=== PATIENT | female | born 1945 | race Caucasian/White ===

== ENCOUNTER → 2017-05-12 | Outpatient (CLI) | payer OTHER ==
[~2017-05-12] MED LIST: BENAZEPRIL HCL/1 TAB PO; COL250 PO; LISINOPRIL-HYDR1 TA2 PO; MAALOX PO; NORCO1 TA2 PO; OXYBUTYNIN CHLOR5 MG PO; PRAVACHOL20 MG PO; PROTONIX TR40 M1 PO; ZANTAC 150150 MG PO
== END | disposition home or self-care (01) ==
LOC: MA 08:36
PROC: BH02ZZZ Plain Radiography of Bilateral Breasts (ICD-10-PCS; principal; 2017-05-12)
DX: Z12.31 Encounter for screening mammogram for malignant neoplasm of breast (principal)
CPT/HCPCS: G0202

== ENCOUNTER → 2018-05-26 | Outpatient (CLI) | payer OTHER | END | disposition home or self-care (01) | LOC: MA 09:00 | PROC: BH02ZZZ Plain Radiography of Bilateral Breasts (ICD-10-PCS; principal; 2018-05-26) | DX: Z12.31 Encounter for screening mammogram for malignant neoplasm of breast (principal) | CPT/HCPCS: 77067 ==

== ENCOUNTER 2018-10-21 21:05 | Emergency (ER) | payer OTHER ==
[~2018-10-21] VITALS: Ht 157.5 cm; Wt 68.0 kg
[2018-10-21 21:10] VITALS: Ht 157.5 cm; Wt 68.0 kg
[2018-10-21 22:03] VITALS: BP 136/72
== END 2018-10-21 22:04 | disposition home or self-care (01) ==
LOC: ED 21:05
DX: M54.5 Low back pain (principal); I10 Essential (primary) hypertension; K21.9 Gastro-esophageal reflux disease without esophagitis; E78.00 Pure hypercholesterolemia, unspecified; Z88.5 Allergy status to narcotic agent; Z87.440 Personal history of urinary (tract) infections

== ENCOUNTER 2019-07-26 18:33 | Inpatient (IN) | payer OTHER ==
[~2019-07-26] VITALS: Ht 160 cm; Wt 64.9 kg
[2019-07-26 18:43] VITALS: Ht 160 cm; Wt 64.9 kg
[2019-07-26 21:01] LABS: BASOPHIL % 0.1 % (0-2); PLATELET COUNT 274 x10^3mcL (130-400); RED CELL DISTRIBUTION WIDTH 13.2 % (11.5-14.5)
[2019-07-26 21:20] LABS: CALCIUM 9.9 mg/dL (8.5-10.1); CARBON DIOXIDE 28.7 mmol/L (21-32); CHLORIDE SERUM 104 mmol/L (98-107); GLUCOSE SERUM 133 mg/dL (74-106); POTASSIUM SERUM 4.5 mmol/L (3.5-5.1); SODIUM SERUM 141 mmol/L (136-145)
[2019-07-26 21:25] LABS: ALBUMIN 4.1 g/dL (3.4-5.0); ALKALINE PHOSPHATASE 74 U/L (46-116); ALT/SGPT 23 U/L (14-59); AST/SGOT 19 U/L (15-37); BILIRUBIN TOTAL 0.7 mg/dL (0.20-1.00)
[2019-07-27] MEDS ORDERED: ASPIRIN CHILDRE81 MG PO (04:23)
[2019-07-27 05:21] LABS: BASOPHIL % 0.3 % (0-2); PLATELET COUNT 227 x10^3mcL (130-400)
[2019-07-27 08:25] VITALS: BP 143/80
[2019-07-27 14:15] VITALS: BP 129/66
[2019-07-27 18:06] VITALS: BP 179/92
[2019-07-27 18:52] VITALS: BP 156/86
[2019-07-27 21:14] VITALS: BP 165/72
[2019-07-28 06:06] VITALS: BP 148/69
[2019-07-28 06:46] LABS: BASOPHIL % 0.1 % (0-2); PLATELET COUNT 208 x10^3mcL (130-400); RED CELL DISTRIBUTION WIDTH 13.2 % (11.5-14.5)
[2019-07-28 07:10] LABS: CALCIUM 8.8 mg/dL (8.5-10.1); CARBON DIOXIDE 28.6 mmol/L (21-32); CHLORIDE SERUM 105 mmol/L (98-107); CREATININE SERUM 0.9 mg/dL (0.6-1.0); GLUCOSE SERUM 101 mg/dL (74-106); POTASSIUM SERUM 3.6 mmol/L (3.5-5.1); SODIUM SERUM 142 mmol/L (136-145)
[2019-07-28 09:38] VITALS: BP 136/62
[2019-07-28 13:43] VITALS: BP 107/59
[2019-07-28 13:51] VITALS: BP 107/59
== END 2019-07-28 15:14 | disposition home or self-care (01) | DRG 393 ==
LOC: ED 18:33 → MU 07-27 04:19
PROVIDERS: Emergency Medicine; Internal Medicine; Internal Medicine Pulmonary Disease; ADMIT Internal Medicine Pulmonary Disease
PROC: 0DBL8ZX Excision of Transverse Colon, Via Natural or Artificial Opening Endoscopic, Diagnostic (ICD-10-PCS; 2019-07-28)
PROC: 0DBM8ZX Excision of Descending Colon, Via Natural or Artificial Opening Endoscopic, Diagnostic (ICD-10-PCS; principal; 2019-07-28 09:30)
DX: K55.9 Vascular disorder of intestine, unspecified (principal); K57.91 Diverticulosis of intestine, part unspecified, without perforation or abscess with bleeding; D62 Acute posthemorrhagic anemia; K62.89 Other specified diseases of anus and rectum; K55.1 Chronic vascular disorders of intestine; K21.9 Gastro-esophageal reflux disease without esophagitis; I11.9 Hypertensive heart disease without heart failure; I25.10 Atherosclerotic heart disease of native coronary artery without angina pectoris; N32.81 Overactive bladder; E78.5 Hyperlipidemia, unspecified; F17.211 Nicotine dependence, cigarettes, in remission
CPT/HCPCS: 45378; G0378; J1200; J1610; J2250; J2310; J3010; J3490; Q0092